=== PATIENT | female | born 1995 | race Caucasian/White ===

== ENCOUNTER 2021-03-13 11:05 | Emergency (ER) | payer MEDICAID | END 2021-03-13 11:37 | disposition left against medical advice (07) | LOC: EMS 11:05 | DX: Z20.822 Contact with and (suspected) exposure to COVID-19 (principal); Z53.21 Procedure and treatment not carried out due to patient leaving prior to being seen by health care provider ==

== ENCOUNTER 2021-03-13 15:33 | Emergency (ER) | payer MEDICAID ==
[~2021-03-13] VITALS: Ht 170.2 cm; Wt 86.4 kg
[2021-03-13 16:49] LABS: COVID AG,FIA SOURCE NASOPHARYNGEAL
[2021-03-13 18:29] VITALS: BP 115/62
== END 2021-03-13 18:30 | disposition home or self-care (01) ==
LOC: EMS 16:02
DX: O26.891 Other specified pregnancy related conditions, first trimester (principal); F17.210 Nicotine dependence, cigarettes, uncomplicated; Z3A.01 Less than 8 weeks gestation of pregnancy; F15.90 Other stimulant use, unspecified, uncomplicated; F31.9 Bipolar disorder, unspecified; F12.90 Cannabis use, unspecified, uncomplicated; Z20.822 Contact with and (suspected) exposure to COVID-19
CPT/HCPCS: 87426; 99283; U0003

== ENCOUNTER 2021-04-16 01:56 | Emergency (ER) | payer MEDICAID ==
[~2021-04-16] VITALS: Ht 170.2 cm; Wt 94.5 kg
[2021-04-16] MEDS ORDERED: AMOX500C2 PO (02:34)
[2021-04-16 02:45] VITALS: BP 105/75
[2021-04-16] MEDS ORDERED: AMOXICILLIN TRIHYDRATE 250 MG CAPSULE PO ONE (03:15)
[2021-04-16] MEDS ORDERED: ACETAMINOPHEN 325 MG TABLET PO ONE (03:15)
== END 2021-04-16 03:44 | disposition home or self-care (01) ==
LOC: EMS 01:58
DX: O26.893 Other specified pregnancy related conditions, third trimester (principal); H66.92 Otitis media, unspecified, left ear; F31.9 Bipolar disorder, unspecified; F11.90 Opioid use, unspecified, uncomplicated; F15.90 Other stimulant use, unspecified, uncomplicated; F17.210 Nicotine dependence, cigarettes, uncomplicated; Z3A.36 36 weeks gestation of pregnancy
CPT/HCPCS: 99283